=== PATIENT | female | born 1975 | race African-American/Black ===

== ENCOUNTER 2019-04-18 13:31 | Emergency (ER) | payer OTHER ==
[~2019-04-18] VITALS: Ht 170.2 cm; Wt 60.8 kg
[2019-04-18 13:37] VITALS: BP 108/69
--- NOTE | 2019-04-18 13:59 | NUR ---
ED Nurse Note: Flu swab sent to lab. elevator technician at the bed side for CXR.
--- NOTE | 2019-04-18 14:21 | Diagnostic Imaging Report ---
Indication: Cough Comparison: None A single view chest radiograph was obtained. Findings: There is a rounded calcination projected over the right hilum consistent with old granulomatous disease. Lungs are clear. Heart size is normal. Bones are unremarkable in appearance. IMPRESSION: No acute findings
--- NOTE | 2019-04-18 14:49 | Emergency Room Report ---
History of Present Illness General Chief Complaint: Flu Like Symptoms Source: Patient Present Illness HPI 43-year-old female with no significant past medical history here complaining of 2 days of productive cough and congestion. Denies any nausea vomiting diarrhea. Denies fever and chills, recent travel, urinary symptoms. Has not taken medication for symptom relief. Complains of minimal body aches. Denies . Denies coming in contact with high risk population. Patient is concerned and wants to be tested for coronavirus however says no to all. Travel history. Patient is afebrile, vital signs within normal limits. Allergies: Coded Allergies: No Known Allergies (Unverified , 04/18/19) Patient History Past Medical History: see triage record Past Surgical History: none Pertinent Family History: none Social History: Reports: drug use - marijuana Now: No Immunizations: UTD Reviewed Nursing Documentation: PMH: Agreed; PSxH: Agreed Nursing Documentation-PMH Past Medical History: No Stated History Review of Systems All Other Systems: negative except mentioned in HPI Physical Exam Vital Signs Date Time Temp Pulse Resp B/P (MAP) Pulse Ox O2 Delivery O2 Flow Rate FiO2 04/18/19 13:37 99.9 85 17 108/69 (82) 99 Room Air Sp02 EP Interpretation: reviewed, normal General Appearance: no apparent distress, alert, GCS 15, non-toxic Head: normocephalic, atraumatic Eyes: bilateral eye normal inspection, bilateral eye PERRL ENT: hearing grossly normal, normal pharynx, no angioedema, normal voice Neck: full range of motion, supple, no meningismus, supple/symm/no masses Respiratory: chest non-tender, no rhonchi, no respiratory distress, no retraction, no accessory muscle use, no wheezing, speaking full sentences Cardiovascular #1: regular rate, rhythm, no edema, no murmur Gastrointestinal: normal bowel sounds, non tender, soft, non-distended, no guarding, no rebound Rectal: deferred Genitourinary: no CVA tenderness Musculoskeletal: back normal, normal range of motion, no calf tenderness, gait/ station normal, non-tender Neurologic: alert, motor strength/tone normal, oriented x3, sensory intact, responsive, speech normal Psychiatric: judgement/insight normal, memory normal, mood/affect normal, no suicidal/homicidal ideation Skin: no rash Lymphatic: no adenopathy Medical Decision Making PA Attestation All my diagnosis and treatment plans were reviewed ad discussed with my supervising physician Dr. Decker Diagnostic Impression: Primary Impression: Pneumonitis ER Course 43-year-old female with no significant past medical history here complaining of 2 days of productive cough and congestion. Denies any nausea vomiting diarrhea. Denies fever and chills, recent travel, urinary symptoms. Has not taken medication for symptom relief. Complains of minimal body aches. Denies . Denies coming in contact with high risk population. Patient is concerned and wants to be tested for coronavirus however says no to all. Travel history. Patient is afebrile, vital signs within normal limits. Ddx considered but are not limited to: bronchitis, PNA, URI viral, bacterial bronchitis, pneumonitis Vital signs: are WNL, pt. is afebrile H&PE are most consistent with: Pneumonitis ORDERS:, Chest x-ray, influenza swab Phenergan DM for nighttime, guaifenesin, azithromycin ED INTERVENTIONS: None required at this time. DISCHARGE: At this time pt. is stable for d/c to home. Will provide printed patient care instructions, and any necessary prescriptions. Care plan and follow up instructions have been discussed with the patient prior to discharge. Take medication as directed, follow-up with your primary care provider, if worsening symptoms return to the emergency room Chest X-Ray Diagnostic Results Chest X-Ray Diagnostic Results : Chest X-Ray Ordered: Yes # of Views/Limited/Complete: 1 View Indication: Shortness of Breath EP Interpretation: Yes PA Xray: Interpretation reviewed, by supervising MD, and agrees with findings. Interpretation: no consolidation, no effusion, no pneumothorax Impression: No acute disease Electronically Signed by: Shruthi Dawn PA-C Last Vital Signs Date Time Temp Pulse Resp B/P (MAP) Pulse Ox O2 Delivery O2 Flow Rate FiO2 04/18/19 13:43 85 17 Room Air 04/18/19 13:37 99.9 108/69 99 Disposition: HOME, SELF-CARE Condition: Stable Scripts Guaifenesin* (GUAIFENESIN*) 100 Mg/5 Ml Liquid 5 ML ORAL Q8H, #120 ML 0 Refills Prov: Shruthi Thompson 04/18/19 D-Methorphan Hb/Prometh Hcl* (PROMETHAZINE-DM SYRUP*) 118 Ml Syrup 5 ML ORAL Q6H PRN for For Cough, #100 ML 0 Refills Prov: Shruthi Thompson 04/18/19 Azithromycin* (ZITHROMAX*) 250 Mg Tablet 250 MG ORAL DAILY, #6 TAB 0 Refills Take two tables once daily for 1 day, then one tablet once daily for 4 days. Prov: Shruthi Thompson 04/18/19 Patient Instructions: Pneumonitis Additional Instructions: Take medication as directed, follow-up with your primary care provider, increase oral hydration, if worsening symptoms return to the emergency room Shruthi Thompson Apr 18, 2019 14:48
[2019-04-18] MEDS ORDERED: GUAIFENESI100 MG/5 M ORAL (14:58)
[2019-04-18] MEDS ORDERED: ZITHROMAX250 MG ORAL (14:58)
[2019-04-18] MEDS ORDERED: PROMETHAZINE-D118 ML ORAL (14:58)
[2019-04-18 15:06] VITALS: BP 114/73
--- NOTE | 2019-04-18 15:06 | NUR ---
ER DISCHARGE NOTE: Pt was seen due to flu like symptoms. Patient is cleared to be discharged per ERMD, pt is aox4, on room air, with stable vital signs. pt was given dc and prescription instructions, pt was able to verbalize understanding, pt id band removed without complications. pt is able to ambulate with steady gait. pt took all belongings.
== END 2019-04-18 15:06 | disposition home or self-care (01) ==
LOC: EMR 14:48
DX: J18.9 Pneumonia, unspecified organism (principal)
CPT/HCPCS: 71045; 86710; 99283